=== PATIENT | male | born 1985 | race Caucasian/White ===

== ENCOUNTER 2017-08-02 09:13 | Emergency (ER) | payer OTHER ==
[2017-08-02] MEDS ORDERED: fentaNYL 100 MCG/2 ML INJ ONE (09:22)
[2017-08-02 09:24] VITALS: RESP 16; TEMP 98.4
[2017-08-02] MEDS ORDERED: fentaNYL 100 MCG/2 ML INJ IVP ONE (09:27)
--- NOTE | 2017-08-02 09:27 | EDPHY ---
General Narrative: CHIEF COMPLAINT: Patellar dislocation HISTORY OF PRESENT ILLNESS: Patient arrives by EMS with complaints of right knee patella dislocation. This happened within the past 1 hr. He was at work when he twisted awkwardly, hearing a pop and noticing his patella dislocated laterally. Severely painful. Tolerated well with IV morphine EN route. No numbness or tingling distally. No injury elsewhere. This has happened once in the past several years ago in [place]. No other associated complaints or modifying factors. He seen at time of arrival. ESTABLISHED ORTHOPEDIST: None locally REVIEW OF SYSTEMS: Ten systems reviewed and are negative unless otherwise noted in the HPI PAST MEDICAL HISTORY: Orthopedic injuries PAST SURGICAL HISTORY: None recently SOCIAL HISTORY: Nonsmoker. 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 Originally from [place] FAMILY HISTORY: Noncontributory EXAMINATION General Appearance: Alert, no distress Cardiovascular: Pulses normal throughout. Brisk cap refill Neurological: A&O, no footdrop. Sensory intact symmetrically to the top of the feet and great toes Skin: Warm and dry, no rash. No puncture. No laceration or abrasion. Extremities: Tenderness of the right knee with obvious patellar dislocation deformity. This is closed without puncture laceration. Range of motion of the right knee not tested range of motion of the right ankle is intact. Neurovascular intact distal to the injury. Psychiatric: Mood and affect normal DIFFERENTIAL DIAGNOSES: Including but not limited to patellar dislocation, patellar fracture, knee fracture, knee dislocation, tibial fracture, fibular fracture MDM: 9:20 a.m. Right knee patellar dislocation without evidence of knee dislocation. He is neurovascular intact distally. No acute distress. X-ray has been ordered to visualize prior to close reduction at bedside. 9:25 a.m. Bedside knee x-ray reveals dislocated patella without obvious fracture as read by me. Proceed with closed reduction. 9:35 a.m. Closed reduction of the right patella without difficulty. Tolerated well with IV fentanyl 100 mcg. No procedural sedation. CMS intact pre and postprocedure. Knee immobilizer being applied. 10:00 a.m. Successful closed reduction without any fracture on the post reduction film. Small joint effusion. He is in a knee immobilizer and has crutches. We discussed disposition, weight-bearing status, medications. We discussed contacting worker's compensation [facility] and Orthopedics for definitive care. We discussed ED precautions. He is neuro intact and discharged home stable condition. PROCEDURE: Closed reduction of patella Consent: Verbal prior to pain medication Location: Right patella Anesthesia: IV fentanyl x1. No procedural sedation Procedure: After verbal consent and time-out, the right patella was manipulated medially with slight flexion of the knee. There was instant reduction of the patella to anatomic location. Tolerated well with no difficulty. DP and PT pulses are symmetric pre and postprocedure. Complications: None Post-reduction film: Successful reduction without obvious fracture SUPERVISION: Patient was independently examined, but I discussed the case with my secondary supervising physician Dr. Montgomery ED Precautions: Worsening pain. Erythema, edema, cyanosis, pallor, paresthesia or anesthesia. (Lawson Early) Medical Decision Making: I did not see this patient while he was in the emergency department. However his care was discussed with the PA while the patient was in the department. I agree with treatment plan and management. IM the secondary supervising physician (Juan Montgomery) - Diagnostics Imaging Results: Imaging Impressions Knee X-Ray 08/02/17 09:20 Impression: Lateral patellar dislocation. Knee X-Ray 08/02/17 09:33 Impression: Reduction of patellar dislocation with a small joint effusion with no visible fracture. - Objective Vital Signs: Initial Vital Signs Temperature (C) 36.9 C 08/02/17 09:21 Heart Rate 63 08/02/17 09:21 Respiratory Rate 16 08/02/17 09:21 Blood Pressure 113/89 H 08/02/17 09:21 O2 Sat (%) 97 08/02/17 09:21 O2 Delivery Mode Room Air Allergies/Adverse Reactions: No Known Allergies Allergy (Unverified 08/02/17 09:21) Home Medications: Medication Instructions Recorded oxyCODONE HCL/ACETAMINOPHEN 1 each PO Q4-6PRN PRN #7 tablet 08/02/17 [Percocet 5-325 mg Tablet] Medications Given: Discontinued Medications Fentanyl (Sublimaze) 100 mcg IVP EDNOW ONE Stop: 08/02/17 09:28 Last Admin: 08/02/17 09:25 Dose: 100 mcg Departure - Departure Disposition: Home, Routine, Self-Care Clinical Impression: Dislocation, patella closed Qualifiers: Encounter type: initial encounter Laterality: right Qualified Code(s): S83.004A - Unspecified dislocation of right patella, initial encounter Condition: Good Instructions: Knee Pain (ED), Patellar Dislocation (ED) Additional Instructions: 1. Toe-touch weight-bearing only on the right knee until seen by orthopedist 2. Knee brace and crutches as provided at all times 3. Pain medication as prescribed as needed 4. Anti-inflammatories as discussed as needed 5. Contact her worker's compensation Clinic for definitive care Referrals: Kaveh Grant MD [Medical Doctor] - As per Instructions Stand Alone Forms: Work Comp Follow Up Prescriptions: oxyCODONE HCL/ACETAMINOPHEN [Percocet 5-325 mg Tablet] 1 each PO Q4-6PRN PRN #7 tablet PRN Reason: Pain, Breakthrough
[2017-08-02 10:18] VITALS: BP 130/71; PULSE 70; O2SAT 95
== END 2017-08-02 10:16 | disposition home or self-care (01) ==
PROC: 0SSCXZZ Reposition Right Knee Joint, External Approach (ICD-10-PCS; principal; 2017-08-02)
DX: S83.004A Unspecified dislocation of right patella, initial encounter (principal); X58.XXXA Exposure to other specified factors, initial encounter; Y92.69 Other specified industrial and construction area as the place of occurrence of the external cause; Y99.0 Civilian activity done for income or pay; Y93.89 Activity, other specified
CPT/HCPCS: J3010